=== PATIENT | female | born 1935 | race Caucasian/White ===

== ENCOUNTER 2024-06-07 12:44 | Outpatient (CLI) | payer MEDICARE, OTHER | END 2024-06-07 12:45 | disposition home or self-care (01) | LOC: CSHCP 12:44 | PROVIDERS: ATTEND Internal Medicine | DX: R06.09 Other forms of dyspnea (principal); J44.9 Chronic obstructive pulmonary disease, unspecified; J98.4 Other disorders of lung | CPT/HCPCS: 94060; 94618; 94664; 94726; 94729 ==